=== PATIENT | male | born 1985 | race Two or more races ===

== ENCOUNTER 2018-04-04 00:06 | Emergency (ER) | payer OTHER ==
[~2018-04-04] VITALS: Ht 167.6 cm; Wt 54.4 kg
[2018-04-04] MEDS ORDERED: KETO10TA2 PO (04:17)
[2018-04-04] MEDS ORDERED: NORFLEX100MG PO (04:17)
== END 2018-04-04 04:37 | disposition home or self-care (01) ==
LOC: ER 00:06
DX: M54.89 Other dorsalgia (principal); M54.6 Pain in thoracic spine

== ENCOUNTER 2018-05-09 20:15 | Emergency (ER) | payer OTHER ==
[~2018-05-09] VITALS: Ht 167.6 cm; Wt 56.7 kg
[~2018-05-09 20:15] MED LIST: KETO10TA2 PO; NORFLEX100MG PO
== END 2018-05-09 22:41 | disposition home or self-care (01) ==
LOC: ER 20:15
DX: R07.89 Other chest pain (principal); F41.8 Other specified anxiety disorders